=== PATIENT | male | born 1995 ===

== ENCOUNTER 2017-10-28 20:40 | Emergency (ER) | payer OTHER ==
[2017-10-28 21:16] VITALS: RESP 18; TEMP 97.9; O2SAT 99
--- NOTE | 2017-10-28 21:29 | ED PDOC ---
Arrival/HPI - General Historian: Patient <Ady Nowak - Last Filed: 10/29/17 02:00> <Atif Ba - Last Filed: 10/29/17 02:25> - General Chief Complaint: GI Problem Time Seen by Provider: 10/28/17 21:28 - History of Present Illness Narrative History of Present Illness (Text): 10/28/17 21:29 22 y/o male, no significant pmh, nkda, c/o periumbilical pain started yesterday. Aching pain, on and off, associated with nausea and vomiting, no diarrhea, no rash, no numbness or tingling, no urinary symptoms, no night sweat , no dizziness, no change in vision, no change in appetize, no other medical or psychological complaints. (Ady Nowak) Past Medical History - Provider Review Nursing Documentation Reviewed: Yes - Psychiatric Hx Substance Use: No <Ady Nowak - Last Filed: 10/29/17 02:00> Family/Social History - Physician Review Nursing Documentation Reviewed: Yes Family/Social History: Unknown Family HX Smoking Status: n Hx Alcohol Use: No Hx Substance Use: No <Ady Nowak - Last Filed: 10/29/17 02:00> Allergies/Home Meds <Ady Nowak - Last Filed: 10/29/17 02:00> <Atif Ba - Last Filed: 10/29/17 02:25> Allergies/Adverse Reactions: Allergies No Known Allergies Allergy (Verified 10/28/17 21:13) Home Medications: Home Meds Medication Instructions Recorded Confirmed No Known Home Med 10/28/17 10/28/17 Review of Systems - Review of Systems Constitutional: absent: Fatigue, Fevers Eyes: absent: Vision Changes ENT: absent: Hearing Changes Respiratory: absent: SOB, Cough Cardiovascular: absent: Chest Pain Gastrointestinal: Abdominal Pain, Nausea, Vomiting. absent: Diarrhea Skin: absent: Rash, Pruritis Neurological: absent: Headache, Dizziness Endocrine: absent: Diaphoresis Psychiatric: absent: Anxiety, Depression <Ady Nowak - Last Filed: 10/29/17 02:00> Physical Exam Vital Signs Reviewed: Yes Temperature: Afebrile Blood Pressure: Normal Pulse: Regular Respiratory Rate: Normal Appearance: Positive for: Well-Appearing, Non-Toxic, Comfortable Pain Distress: Mild Mental Status: Positive for: Alert and Oriented X 3 - Systems Exam Head: Present: Atraumatic, Normocephalic Pupils: Present: PERRL Extroacular Muscles: Present: EOMI Conjunctiva: Present: Normal Mouth: Present: Moist Mucous Membranes Neck: Present: Normal Range of Motion Respiratory/Chest: Present: Clear to Auscultation, Good Air Exchange. No: Respiratory Distress, Accessory Muscle Use Cardiovascular: Present: Regular Rate and Rhythm, Normal S1, S2. No: Murmurs Abdomen: Present: Tenderness (periumbilica, negative muhammad and negative epigastric tenderness. ), Normal Bowel Sounds. No: Distention, Peritoneal Signs , Rebound, Guarding Back: Present: Normal Inspection. No: CVA Tenderness Upper Extremity: Present: Normal Inspection. No: Cyanosis, Edema Lower Extremity: Present: Normal Inspection. No: Edema Neurological: Present: GCS=15, Speech Normal, Motor Func Grossly Intact, Gait Normal, Memory Normal Skin: Present: Warm, Dry, Normal Color. No: Rashes Psychiatric: Present: Alert, Oriented x 3, Normal Insight, Normal Concentration <Ady Nowak - Last Filed: 10/29/17 02:00> Vital Signs Temp Pulse Resp BP Pulse Ox 10/28/17 21:13 97.9 F 75 18 115/74 99 Medical Decision Making <Ady Nowak - Last Filed: 10/29/17 02:00> <Atif Ba - Last Filed: 10/29/17 02:25> ED Course and Treatment: 10/28/17 22:47 -labs/ua/rapid flu -CT abdomen and pelvis -IVF/pepcid/zofran -Observe and reassess 10/29/17 02:00 -Labs are non-significant -Rapid flu is negative -Pending UA -CT abdomen and pelvis is pending -Case endorsed and discussed with DR. Ba, he will follow up the radiology study/labs and dispo for the patient. (Ady Nowak) CT Abdomen and Pelvis With Intravenous Contrast FINDINGS: LIMITATIONS: Mild to moderate streak/motion artifact. LOWER THORAX: Incidental 4 mm noncalcified pulmonary nodule in the right lung base. In low-risk patients (minimal or absent history of smoking or other known risk factors), no follow-up is necessary. For high-risk patients (history of smoking or other known risk factors), an optional chest CT at 12 months could be performed. ABDOMEN: LIVER: Fatty infiltration of the liver, with areas of focal fatty sparing in the caudate lobe and left lobe. GALLBLADDER AND BILE DUCTS: Gallbladder appears contracted. No CT evidence of acute cholecystitis. No evidence of significant biliary ductal dilatation. PANCREAS: No CT evidence of acute pancreatitis. SPLEEN: No acute abnormality of the spleen identified. ADRENALS: No acute abnormality of the adrenal glands identified. KIDNEYS AND URETERS: No acute abnormality of the kidneys identified. No evidence of significant hydrouereteronephrosis. STOMACH AND BOWEL: No acute abnormality of the stomach, small bowel or colon identified. No evidence of bowel obstruction. APPENDIX: Appendix is seen, and is within normal limits in appearance. PELVIS: BLADDER: No acute abnormality of the bladder identified. REPRODUCTIVE: No acute abnormality of the reproductive organs is seen. ABDOMEN and PELVIS: INTRAPERITONEAL SPACE: No evidence of free intraperitoneal air or fluid. BONES/JOINTS: No acute fractures or other acute bony abnormality noted. SOFT TISSUES: No acute abnormality of the visualized soft tissues is seen. VASCULATURE: No evidence of abdominal aortic aneurysm. No evidence of periaortic hemorrhage. LYMPH NODES: No evidence of diffuse lymphadenopathy. IMPRESSION: - No evidence of significant acute process. No definite cause for pain identified. - Incidental 4 mm pumonary nodule. See recommendations above. - See above for remaining findings. Dictated and Authenticated by: Lynn Bui MD 10/29/2017 2:08 AM Eastern Time ([place] & [place]) (Atif Ba) - Lab Interpretations Lab Results: 10/28/17 22:55 10/28/17 22:55 Lab Results 10/28/17 23:30: Influenza Typ A,B (EIA) Negative for flu a/b 10/28/17 22:55: WBC 9.2, RBC 4.49, Hgb 13.5 L, Hct 39.5 L, MCV 88.0, MCH 30.1, MCHC 34.2, RDW 13.1, Plt Count 313, MPV 10.1, Gran % 64.3, Lymph % (Auto) 24.6, Johnson % (Auto) 6.9 H, Eos % (Auto) 3.8, Baso % (Auto) 0.4, Gran # 5.88, Lymph # ( Auto) 2.3, Johnson # (Auto) 0.6, Eos # (Auto) 0.4, Baso # (Auto) 0.04 10/28/17 22:55: Sodium 142, Potassium 3.6, Chloride 105, Carbon Dioxide 25, Anion Gap 15, BUN 13, Creatinine 0.7 L, Est GFR ( Amer) > 60, Est GFR ( Non-Af Amer) > 60, Random Glucose 100, Calcium 9.0, Total Bilirubin 0.5, AST 38 , ALT 63 H, Alkaline Phosphatase 94, Total Protein 7.3, Albumin 4.1, Globulin 3.2, Albumin/Globulin Ratio 1.3, Lipase 63 - RAD Interpretation Radiology Orders: 10/28/17 22:43 ABD & PELVIS IV CONTRAST ONLY [CT] Stat - Medication Orders Current Medication Orders: Sodium Chloride (Sodium Chloride 0.9%) 1,000 mls @ 100 mls/hr IV .Q10H SAMUEL Last Admin: 10/28/17 23:18 Dose: 100 mls/hr eMAR Start Stop Document 10/28/17 23:18 JOSE DE JESUS (Rec: 10/28/17 23:18 JOSE DE JESUS [id number]) Intravenous Solution Start Date 10/28/17 Start Time 23:18 End Date 10/29/17 End time 00:18 Total Infusion Time 60 Discontinued Medications Famotidine (Pepcid) 20 mg IVP STAT STA Stop: 10/28/17 22:44 Last Admin: 10/28/17 23:18 Dose: 20 mg IVP Administration Document 10/28/17 23:18 JOSE DE JESUS (Rec: 10/28/17 23:18 JOSE DE JESUS [id number]) Charges for Administration # of IVP Administrations 1 Ondansetron HCl (Zofran Inj) 4 mg IVP STAT STA Stop: 10/28/17 22:44 Last Admin: 10/28/17 23:18 Dose: 4 mg IVP Administration Document 10/28/17 23:18 JOSE DE JESUS (Rec: 10/28/17 23:18 JOSE DE JESUS [id number]) Charges for Administration # of IVP Administrations 1 - PA / REGIONAL REHABILITATION DIRECTOR / Resident Statement / has reviewed & agrees with the documentation as recorded. <Ady Nowak - Last Filed: 10/29/17 02:00> - PA / REGIONAL REHABILITATION DIRECTOR / Resident Statement / has examined the patient and agrees with the treatment plan. <Atif Ba - Last Filed: 10/29/17 02:25> Disposition/Present on Arrival - Present on Arrival Any Indicators Present on Arrival: No History of DVT/PE: No History of Uncontrolled Diabetes: No Urinary Catheter: No History of Decub. Ulcer: No History Surgical Site Infection Following: None - Disposition Have Diagnosis and Disposition been Completed?: Yes Disposition Time: 02:01 <Ady Nowak - Last Filed: 10/29/17 02:00> - Present on Arrival Any Indicators Present on Arrival: No History of DVT/PE: No History of Uncontrolled Diabetes: No Urinary Catheter: No History of Decub. Ulcer: No - Disposition Have Diagnosis and Disposition been Completed?: Yes Patient Plan: Discharge <Atif Ba - Last Filed: 10/29/17 02:25> - Disposition Diagnosis: Periumbilical pain, Nonspecific abdominal pain Disposition: HOME/ ROUTINE Patient Problems: Current Active Problems Problem Status Onset Periumbilical pain Acute Condition: GOOD Discharge Instructions (ExitCare): Abdominal Pain (ED) Additional Instructions: Olvin- Sorry you are not feeling well. Rest, Plenty of fluids, Tylenol for pain, Gas- X for cramps, follow up with your doctor, return to us if worse or new symptoms occur. Best- Dr. Atif Ba Referrals: Mely Tesfaye MD [Primary Care Provider] - Follow up with primary Forms: [employer] (Italian)
[2017-10-28] MEDS ORDERED: Sodium Chloride 0.9% 1,000 ML IV SCH (22:45)
[2017-10-28 23:38] LABS: BASO # 0.04 K/mm3 (0.0-2.0); BASO % 0.4 % (0.0-3.0); EOS # 0.4 (0.0-0.7); EOS % 3.8 % (1.5-5.0); GRAN # 5.88 (1.4-6.5); GRAN % 64.3 % (50.0-68.0); HEMOGLOBIN 13.5 g/dL (14.0-18.0); LYMPH # 2.3 (1.2-3.4); LYMPH % 24.6 % (22.0-35.0); MEAN CORPUSCULAR HEMOGLOBIN 30.1 pg (25.0-35.0); MEAN CORPUSCULAR HGB CONC 34.2 g/dl (31.0-37.0); MEAN PLATELET VOLUME 10.1 fl (7.0-11.0); MONO # 0.6 (0.1-0.6); MONO % 6.9 % (1.0-6.0); RBC 4.49 10^6/uL (3.5-6.1); RED CELL DISTRIBUTION WIDTH 13.1 % (11.5-14.5); WHITE BLOOD COUNT 9.2 10^3/ul (4.5-11.0)
[2017-10-28 23:42] LABS: ALB/GLOB RATIO 1.3 (1.1-1.8); ALBUMIN 4.1 g/dL (3.0-4.8); ALT/SGPT 63 U/L (7-56); AST/SGOT 38 U/L (17-59); BLOOD UREA NITROGEN 13 mg/dL (7-21); GFR AFRICAN-AMERICAN > 60; GFR NON-AFRICAN AMERICAN > 60; LIPASE 63 U/L (23-300)
[2017-10-29] MEDS ORDERED: Iohexol 350 MG/100 ML VIAL ONE (00:29)
--- NOTE | 2017-10-29 02:08 | CT ---
EXAM: CT Abdomen and Pelvis With Intravenous Contrast EXAM DATE/TIME: 10/28/2017 10:43 PM CLINICAL HISTORY: 22 years old, male; Pain; Abdominal pain; Epigastric; Additional info: Epigastric and periumbilical pain x 2 days. TECHNIQUE: Axial computed tomography images of the abdomen and pelvis with intravenous contrast. All CT scans at this facility use one or more dose reduction techniques, viz.: automated exposure control; ma/kV adjustment per patient size (including targeted exams where dose is matched to indication; i.e. head); or iterative reconstruction technique. Coronal and sagittal reformatted images were created and reviewed. CONTRAST: 96 mL of OMNI 350 administered intravenously. COMPARISON: No relevant prior studies available. FINDINGS: LIMITATIONS: Mild to moderate streak/motion artifact. LOWER THORAX: Incidental 4 mm noncalcified pulmonary nodule in the right lung base. In low-risk patients (minimal or absent history of smoking or other known risk factors), no follow-up is necessary. For high-risk patients (history of smoking or other known risk factors), an optional chest CT at 12 months could be performed. ABDOMEN: LIVER: Fatty infiltration of the liver, with areas of focal fatty sparing in the caudate lobe and left lobe. GALLBLADDER AND BILE DUCTS: Gallbladder appears contracted. No CT evidence of acute cholecystitis. No evidence of significant biliary ductal dilatation. PANCREAS: No CT evidence of acute pancreatitis. SPLEEN: No acute abnormality of the spleen identified. ADRENALS: No acute abnormality of the adrenal glands identified. KIDNEYS AND URETERS: No acute abnormality of the kidneys identified. No evidence of significant hydrouereteronephrosis. STOMACH AND BOWEL: No acute abnormality of the stomach, small bowel or colon identified. No evidence of bowel obstruction. APPENDIX: Appendix is seen, and is within normal limits in appearance. PELVIS: BLADDER: No acute abnormality of the bladder identified. REPRODUCTIVE: No acute abnormality of the reproductive organs is seen. ABDOMEN and PELVIS: INTRAPERITONEAL SPACE: No evidence of free intraperitoneal air or fluid. BONES/JOINTS: No acute fractures or other acute bony abnormality noted. SOFT TISSUES: No acute abnormality of the visualized soft tissues is seen. VASCULATURE: No evidence of abdominal aortic aneurysm. No evidence of periaortic hemorrhage. LYMPH NODES: No evidence of diffuse lymphadenopathy. IMPRESSION: - No evidence of significant acute process. No definite cause for pain identified. - Incidental 4 mm pumonary nodule. See recommendations above. - See above for remaining findings.
[2017-10-29 02:15] LABS: PH,URINE 5.5 (4.7-8.0); URINE BILIRUBIN MODERATE (NEGATIVE); URINE BLOOD NEGATIVE (NEGATIVE); URINE GLUCOSE (UA) NEGATIVE (NEGATIVE); URINE LEUKOCYTE ESTERASE NEGATIVE Leu/uL (NEGATIVE); URINE NITRATE NEGATIVE (NEGATIVE); URINE PROTEIN NEGATIVE mg/dL (<30 mg/dL); URINE UROBILINOGEN 0.2 E.U./dL (<1 E.U./dL)
[2017-10-29 02:32] LABS: URINE APPEARANCE CLEAR (CLEAR); URINE COLOR YELLOW (YELLOW)
[2017-10-29 02:40] VITALS: BP 121/76; PULSE 74
== END 2017-10-29 02:41 | disposition home or self-care (01) ==
LOC: ED 20:40
DX: R10.33 Periumbilical pain (principal); R10.13 Epigastric pain
CPT/HCPCS: 74177; 80053; 81003; 83690; 85025; 87804; 96361; 96374; 96375; 99283; J2405; J7040; Q9967